=== PATIENT | female | born 1990 | race Caucasian/White ===

== ENCOUNTER 2019-09-28 13:42 | Emergency (ER) | payer MEDICAID ==
[~2019-09-28] VITALS: Ht 152.4 cm; Wt 63.0 kg
[2019-09-28 13:49] VITALS: BP 119/82; Ht 152.4 cm; Wt 63.0 kg
== END 2019-09-28 14:25 | disposition home or self-care (01) ==
LOC: ED 13:42
DX: S20.369A Insect bite (nonvenomous) of unspecified front wall of thorax, initial encounter (principal); S40.862A Insect bite (nonvenomous) of left upper arm, initial encounter; S30.860A Insect bite (nonvenomous) of lower back and pelvis, initial encounter; W57.XXXA Bitten or stung by nonvenomous insect and other nonvenomous arthropods, initial encounter; Y93.89 Activity, other specified; Y92.89 Other specified places as the place of occurrence of the external cause; Y99.8 Other external cause status